=== PATIENT | female | born 1990 | race Caucasian/White ===

== ENCOUNTER → 2016-10-20 | Outpatient (REF) | payer OTHER | LOC: M LAB REF 08:49 | PROVIDERS: ATTEND Physician Assistant | DX: N39.0 Urinary tract infection, site not specified (principal) ==

== ENCOUNTER → 2016-11-08 | Outpatient (REF) | payer OTHER ==
[~2016-11-08] MED LIST: BACT800T5 PO; PROM25TA PO; PYRI1TAB5 PO
== END ==
LOC: M LAB REF 17:59
PROVIDERS: ATTEND Physician Assistant
DX: R30.0 Dysuria (principal)

== ENCOUNTER 2016-11-10 10:16 | Emergency (ER) | payer OTHER ==
[~2016-11-10] VITALS: Ht 172.7 cm; Wt 84.6 kg
[2016-11-10] MEDS ORDERED: PYRI1TAB5 PO (10:23)
[2016-11-10] MEDS ORDERED: BACT800T5 PO (11:01)
[2016-11-10 11:19] VITALS: BP 124/84
== END 2016-11-10 11:21 | disposition home or self-care (01) ==
LOC: M ED 10:16
DX: N39.0 Urinary tract infection, site not specified (principal); Z90.79 Acquired absence of other genital organ(s); Z87.442 Personal history of urinary calculi

== ENCOUNTER 2016-11-14 04:10 | Emergency (ER) | payer OTHER ==
[~2016-11-14 04:10] MED LIST changes: -PROM25TA PO
[2016-11-14] MEDS ORDERED: PROM25TA PO (06:07)
[2016-11-14 06:51] VITALS: BP 138/65
== END 2016-11-14 06:54 | disposition home or self-care (01) ==
LOC: M ED 04:10
DX: R11.2 Nausea with vomiting, unspecified (principal); R10.2 Pelvic and perineal pain; F99 Mental disorder, not otherwise specified; Z87.440 Personal history of urinary (tract) infections